=== PATIENT | male | born 1965 | race Caucasian/White ===

== ENCOUNTER 2017-10-09 10:49 | Emergency (ER) | payer SELFPAY ==
[~2017-10-09] VITALS: Ht 167.6 cm; Wt 86.0 kg
[2017-10-09] MEDS ORDERED: LACTATED RINGERS 1,000 ML IV STA (11:37)
[2017-10-09] MEDS ORDERED: KETOROLAC 30MG/ML VIAL IV STA (11:37)
[2017-10-09] MEDS ORDERED: ONDANSETRON HCL 4MG/2ML VIAL IV STA (11:37)
[2017-10-09 12:13] LABS: BASOPHILS % 0.5 % (0.0-2.0); HEMATOCRIT. 39.7 % (42.0-52.0); LYMPHOCYTES % 19.5 % (20.0-50.0); MEAN CORPUSCULAR HEMOGLOBIN 30.2 pg (28.0-32.0); MEAN CORPUSCULAR VOLUME 85.3 fL (80.0-94.0); MEAN PLATELET VOLUME 7.1 fl (7.4-10.4); PLATELET 382 x1000/uL (130-400); RED BLOOD CELL COUNT 4.65 mill/uL (4.7-6.1); RED CELL DISTRIBUTION WIDTH 13.3 % (11.6-14.6)
[2017-10-09 12:17] LABS: CHLORIDE 106 mEq/L (98-107)
[2017-10-09 14:25] LABS: KETONES URINE NEGATIVE (NEGATIVE); LEUKOCYTE ESTERASE URINE NEGATIVE (NEGATIVE); NITRITE URINE NEGATIVE (NEGATIVE); OCCULT BLOOD URINE NEGATIVE (NEGATIVE); PROTEIN URINE NEGATIVE (NEGATIVE); SPECIFIC GRAVITY URINE 1.015 (1.005-1.030); UROBILINOGEN URINE 0.2 E.U./dL (0.2-1.0)
[2017-10-09 14:26] LABS: CLARITY URINE CLEAR (CLEAR); COLOR URINE YELLOW (YELLOW)
[2017-10-09] MEDS ORDERED: ACETAMINOPHEN WITH CODEINE 300/30MG TABLET PO ONE (15:00)
[2017-10-09 15:29] VITALS: BP 106/90
== END 2017-10-09 15:38 | disposition home or self-care (01) ==
LOC: ER 13:47
DX: R10.9 Unspecified abdominal pain (principal); R11.2 Nausea with vomiting, unspecified; K76.0 Fatty (change of) liver, not elsewhere classified
CPT/HCPCS: 36415; 76700; 80053; 81003; 82962; 83690; 85025; 85610; 96361; 96374; 96375; 99285; J1885; J2405; J7120; Z7610